=== PATIENT | female | born 1985 | race American Indian/Alaskan Native ===

== ENCOUNTER 2019-01-20 13:24 | Emergency (ER) | payer OTHER ==
[2019-01-20 13:24] VITALS: BMI 46.1
--- NOTE | 2019-01-20 14:11 | C.PDOC ---
History Of Present Illness Patient is a 33 year old female with a past medical history of HTN, OA, Asthma, who presents with right knee pain. Per the patient, when she tried getting out of bed this morning, she felt and heard a "snap, crackle and pop". She currently complains of right knee pain and swelling. She says she is able to walk, however, its painful when bearing weight. She denies skin changes, rashes, fevers, chills, and joint pain elsewhere. she takes gabapentin 500mg PO BID, [id number] PRN, Motrin 800mg PO TID for her chronic right knee pain. PMD: Dr. Clement PMHx: HTN, Asthma, OA, Migraines SurgHx: Leep procedure, FamHx: multiple family members with HTN, DM, CVAs SocHx: smokes 3 ciggarettes daily x20 years; drinks 1 glass of wine daily, denies drug use. Allergies: PCN (unknown rxn); Advil ("not the generic ibuprofen"; lips swell with advil); Lanolin, latex, shellfish Medications: Gabapentin 500mg PO BID, Motrin 800mg PO TID, Tramadol 50mg PRN, Topiramate 100mg daily, Albuterol, and antihypertensive (unknown name) <Jeannine Og - Last Filed: 01/20/19 15:40> <Jeannine Og - Last Filed: 01/20/19 15:40> <Dory Shepard - Last Filed: 01/20/19 17:42> Time Seen by Provider: 01/20/19 13:41 Chief Complaint (Nursing): Lower Extremity Problem/Injury Past Medical History - Medical History PMH: Asthma, HTN Denies: Depression Family History: States: Stroke, Diabetes, Hypertension - Social History Hx Tobacco Use: No Hx Alcohol Use: Yes Hx Substance Use: Yes - Immunization History Hx Tetanus Toxoid Vaccination: Yes Hx Influenza Vaccination: Yes Hx Pneumococcal Vaccination: No <Jeannine Og - Last Filed: 01/20/19 15:40> Vital Signs: Last Vital Signs Temp 98.3 F 01/20/19 15:12 Pulse 69 01/20/19 15:12 Resp 18 01/20/19 15:12 BP 103/73 01/20/19 15:12 Pulse Ox 99 01/20/19 15:12 <Dory Shepard - Last Filed: 01/20/19 17:42> Review Of Systems Constitutional: Negative for: Fever, Chills, Weakness Musculoskeletal: Positive for: Other (righ tknee pain and swelling) Skin: Negative for: Rash, Bruising Neurological: Negative for: Weakness, Numbness, Incoordination <Jeannine Og - Last Filed: 01/20/19 15:40> Physical Exam - Physical Exam Appears: Non-toxic Skin: Normal Color, Warm, Dry, No Rash, No Ecchymosis Extremity: No Pedal Edema, No Calf Tenderness, Swelling (mild swelling laterally and inferior to the patella, decreased ROM due to pain) Extremity: Right: Joint Effusion (mild), Limited ROM To Joint (secondary to pain), Bilateral: Atraumatic, No Pedal Edema, Normal Color And Temperature Pulses: Left Dorsalis Pedis: Normal, Right Dorsalis Pedis: Normal <Jeannine Og - Last Filed: 01/20/19 15:40> Medical Decision Making Medical Decision Making: Patient has right knee pain and swelling. Ordered right knee xray which was negative for fractures, dislocations, and effusions. Patient was given tramadol 50mg PO once. Applied cheryl wrap to right knee. <Jeannine Og - Last Filed: 01/20/19 15:40> Medical Decision Making: Patient seen with resident Agree with assessment and plan <Dory Shepard - Last Filed: 01/20/19 17:42> Disposition - Disposition Disposition Time: 15:25 <Jeannine Og - Last Filed: 01/20/19 15:40> <Dory Shepard - Last Filed: 01/20/19 17:42> - Disposition Disposition: HOME/ ROUTINE Condition: STABLE Additional Instructions: Please follow up with your PMD within one week of discharge. You may continue to wear the CHERYL wrap as needed and may continue your medications that you take for your arthritis. If symptoms worsen, return to the nearest ER. Instructions: Osteoarthritis (DC) Forms: [facility] (Cuban), Work Excuse - Clinical Impression Clinical Impression: Osteoarthritis of right knee
--- NOTE | 2019-01-20 14:45 | RAD ---
PROCEDURE: Right Knee Radiographs. HISTORY: knee pain COMPARISON: None available. FINDINGS: BONES: No acute displaced fracture. JOINTS: No dislocation. JOINT EFFUSION: No significant joint effusion. OTHER FINDINGS: None. IMPRESSION: No acute displaced fracture, dislocation, or significant joint effusion identified. If symptoms persist, or if there is continued clinical concern, x-ray follow-up in 7-10 days should be considered.
[2019-01-20 15:13] VITALS: BP 103/73; PULSE 69; RESP 18; TEMP 98.3; O2SAT 99
== END 2019-01-20 15:42 | disposition home or self-care (01) ==
LOC: C.ER 13:24
DX: M17.11 Unilateral primary osteoarthritis, right knee (principal)

== ENCOUNTER 2019-03-10 09:53 | Day surgery (SDC) | payer BC, MEDICAID ==
[2019-03-10] MEDS ORDERED: Clindamycin 600mg/50ml NS 600 MG/50 ML BAG IVPB ONE (11:15)
[2019-03-10 11:22] VITALS: BMI 44.3
[2019-03-10] MEDS ORDERED: HYDROmorphone 0.5 mg/0.5 ml ISec IVP PRN (11:23)
[2019-03-10] MEDS ORDERED: Morphine 10 mg/5 ml Oral Soln PO PRN (11:40)
[2019-03-10] MEDS ORDERED: Propofol 10 mg/ml Inj (20 ML) ONE ×3 (11:44→12:03)
[2019-03-10] MEDS ORDERED: Succinylcholine Chloride 20 mg/ml Syr (5 ml) IV ONE (11:44)
[2019-03-10] MEDS ORDERED: Dextrose 5%/0.45% NS 1,000 ML IV SCH (11:45)
[2019-03-10] MEDS ORDERED: Esmolol 100 mg/10ml Inj IV ONE (12:09)
[2019-03-10 14:41] VITALS: PULSE 62; RESP 18; TEMP 97.7
[2019-03-10 15:32] VITALS: BP 122/85; O2SAT 98
--- NOTE | 2019-03-10 23:47 | OP ---
PROCEDURE DATE: 03/10/2019 PREOPERATIVE DIAGNOSIS: Chronic tonsillitis. POSTOPERATIVE DIAGNOSIS: Chronic tonsillitis. PROCEDURE: Tonsillectomy. SIGNIFICANT FINDINGS: 2+ tonsils. DESCRIPTION OF PROCEDURE: The patient was brought into room, placed in supine position. Anesthesia initiated through an ET tube. The patient was draped in usual manner. 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 Right tonsil was grabbed, pulled medially. Incision was made in the anterior tonsillar pillar using coblation. Dissection was done between tonsil and tonsillar fossa using coblation until the tonsil was removed. Bleeding was controlled using coblation. Next, the other tonsil was grabbed, pulled medially. Incision was made in the anterior tonsillar pillar using coblation. Dissection was done between tonsil and tonsillar fossa using coblation until the tonsil was removed. Bleeding was controlled using coblation. Both tonsillar beds were rubbed vigorously with coblation wand. No bleeding was noted. Mouth gag was let down for 30 seconds, put back up. No bleeding was noted. Mouth gag was taken down and removed. The patient was taken off anesthesia and taken to recovery room in stable manner. Clarke Maher MD
== END 2019-03-10 15:25 | disposition home or self-care (01) ==
LOC: C.SDS 09:53
PROVIDERS: ATTEND Otolaryngology
DX: J35.01 Chronic tonsillitis (principal)
CPT/HCPCS: 42826; 84703; 88304; J1100; J1170; J2001; J2405; J2704; J3010